=== PATIENT | female | born 1995 | race Caucasian/White ===

== ENCOUNTER 2023-10-06 13:01 | Emergency (ER) | payer MEDICAID ==
[~2023-10-06] VITALS: Ht 165.1 cm; Wt 99.8 kg
[2023-10-06 13:07] VITALS: BP 159/123; PULSE 110; RESP 20; TEMP 98.3; O2SAT 99
[2023-10-06] MEDS: KETOROLAC 30 MG/ML VIAL IVP ONE (13:16)
[2023-10-06] MEDS ORDERED: HYDROcodone/APAP 5/325 MG 1 TAB TAB PO ONE (14:55)
[2023-10-06] MEDS ORDERED: MORPHINE SULFATE 4 MG/ML SYR IM ONE (15:00)
[2023-10-06] MEDS ORDERED: ONDANSETRON 4 MG TAB PO ONE (15:00)
[2023-10-06] MEDS ORDERED: ONDANSETRON 4 MG/2 ML VIAL ONE (15:09)
[2023-10-06] MEDS: MORPHINE SULFATE 4 MG/ML SYR IVP ONE (15:15)
[2023-10-06] MEDS: ONDANSETRON 4 MG/2 ML VIAL IVP ONE (15:15)
[2023-10-06] MEDS ORDERED: IBUP-2213 PO (16:23)
[2023-10-06] MEDS ORDERED: HYDR-5080 PO (16:23)
[2023-10-06 16:40] VITALS: BP 160/92; PULSE 84; RESP 20; TEMP 98.3; O2SAT 99
== END 2023-10-06 16:40 | disposition home or self-care (01) ==
LOC: MED 13:01
DX: S42.212A Unspecified displaced fracture of surgical neck of left humerus, initial encounter for closed fracture (principal); S42.202A Unspecified fracture of upper end of left humerus, initial encounter for closed fracture; Z98.890 Other specified postprocedural states; Z79.899 Other long term (current) drug therapy; Z88.0 Allergy status to penicillin; V89.2XXA Person injured in unspecified motor-vehicle accident, traffic, initial encounter; Y93.89 Activity, other specified; Y92.410 Unspecified street and highway as the place of occurrence of the external cause; Y99.8 Other external cause status
CPT/HCPCS: 73030; 73080; 73200; 96374; 96375; 99285; J1885; J2270; J2405